=== PATIENT | female | born 1945 | race Caucasian/White ===

== ENCOUNTER 2017-12-10 14:55 | Inpatient (IN) | payer OTHER ==
[~2017-12-10] VITALS: Ht 165.1 cm; Wt 71.1 kg
[2017-12-10 15:26] LABS: HEMOGLOBIN 14.8 G/DL (11.9-15.5); MCH 30.5 PG (29.0-34.0); MCHC 33.6 G/DL (30.0-36.0); MCV 90.5 FL (83-99); PLATELET COUNT 251 K/uL (156-360); RBC DIS.WIDTH-CV 12.1 % (11.8-14.6); RBC DIS.WIDTH-SD 39.9 % (39-53); RED BLOOD COUNT 4.86 M/uL (3.80-5.20); WHITE BLOOD COUNT 10.5 K/uL (4.1-10.2)
[2017-12-10 15:36] LABS: CHLORIDE 105 mEq/L (99-109); POTASSIUM 3.6 mEq/L (3.7-5.4); SODIUM 143 mEq/L (136-147)
[2017-12-10 15:37] LABS: GLUCOSE 90 mg/dL (70-99)
[2017-12-10 15:41] LABS: CREATININE 0.8 mg/dL (0.6-1.3); GFR ESTIMATE (CALCULATED) > 59 mL/min/
[2017-12-10 15:42] LABS: UREA NITROGEN (BUN) 11 mg/dL (9-23)
[2017-12-10 17:32] LABS: ALBUMIN 4.7 g/dL (3.2-4.8)
[2017-12-10 17:35] LABS: TOTAL PROTEIN 7.6 g/dL (6.4-8.3)
[2017-12-10 17:37] LABS: TOTAL BILIRUBIN 0.4 mg/dL (0.0-1.0)
[2017-12-10 17:38] LABS: ALKALINE PHOSPHATASE 106 IU/L (3-129)
[2017-12-10 17:40] LABS: AST (GOT) 18 IU/L (2-34)
[2017-12-10 17:41] LABS: ALT (GPT) 17 IU/L (3-49); DIRECT BILIRUBIN 0.2 mg/dL (0.0-0.3)
[2017-12-10 17:42] LABS: LIPASE 21 U/L (1.0-51.0)
[2017-12-10 17:46] LABS: TROP-I INTERPRETATION NEGATIVE; TROPONIN-I < 0.01 ng/mL (0.0-0.30)
[2017-12-10] MEDS ORDERED: DORZOLAMIDE-TIM10 ML BOTH EYES (20:37)
[2017-12-10] MEDS ORDERED: ATORVASTATIN CA10 MG PO (20:38)
[2017-12-10] MEDS ORDERED: CYANOCOBALAM1000 MCG PO (20:39)
[2017-12-10] MEDS ORDERED: CALCIUM 600 +1 EAC9 PO (20:39)
[2017-12-10] MEDS ORDERED: VITAMIN D31000 UNI2 PO (20:40)
[2017-12-11 00:54] LABS: HEMATOCRIT 39.7 % (36.0-46.0); HEMOGLOBIN 13.5 G/DL (11.9-15.5); MCV 89.8 FL (83-99)
[2017-12-11 01:00] LABS: INTER. NORMALIZED RATIO 1.1
[2017-12-11 01:02] LABS: PTT 28.7 SEC (25-37)
[2017-12-11 01:18] VITALS: BP 144/67
[2017-12-11 04:15] VITALS: BP 134/62
[2017-12-11 06:19] LABS: HEMATOCRIT 39.6 % (36.0-46.0); HEMOGLOBIN 13.1 G/DL (11.9-15.5); MCV 90.4 FL (83-99)
[2017-12-11 06:40] LABS: CHLORIDE 107 MEQ/L (99-109); CREATININE 0.8 MG/DL (0.6-1.3); GFR ESTIMATE (CALCULATED) > 59 mL/min/; GLUCOSE 95 mg/dL (70-99); POTASSIUM 3.9 MEQ/L (3.7-5.4); SODIUM 142 MEQ/L (136-147); UREA NITROGEN (BUN) 6 mg/dL (9-23)
[2017-12-11 06:43] LABS: TROP-I INTERPRETATION NEGATIVE; TROPONIN-I < 0.01 ng/mL (0.0-0.30)
[2017-12-11 11:03] LABS: BASOPHIL (%) 0.6 % (0-1); EOSINOPHIL (%) 1.3 % (0-5); EOSINOPHIL COUNT 0.1 K/uL (0-0.3); IMMATURE GRANULOCYTE (%) 0.3 % (0.0-0.7); LYMPHOCYTE (%) 26.8 % (15-42); LYMPHOCYTE COUNT 1.9 K/uL (1.0-2.8); MCH 29.6 PG (29.0-34.0); MCHC 32.4 G/DL (30.0-36.0); MONOCYTE (%) 8.4 % (3-12); MONOCYTE COUNT 0.6 K/uL (0-0.8); NEUTROPHIL (%) 62.6 % (45-76); NEUTROPHIL COUNT 4.4 K/uL (1.8-6.4); PLATELET COUNT 215 K/uL (156-360); RBC DIS.WIDTH-CV 12.3 % (11.8-14.6); RBC DIS.WIDTH-SD 41.1 % (39-53); RED BLOOD COUNT 4.42 M/uL (3.80-5.20); WHITE BLOOD COUNT 7.1 K/uL (4.1-10.2)
[2017-12-11 12:22] VITALS: BP 133/63
[2017-12-11 13:02] LABS: HEMATOCRIT 40.1 % (36.0-46.0); HEMOGLOBIN 13.4 G/DL (11.9-15.5); MCV 91.3 FL (83-99)
[2017-12-11 16:24] VITALS: BP 127/62
[2017-12-11 18:14] LABS: HEMATOCRIT 37.5 % (36.0-46.0); HEMOGLOBIN 12.5 G/DL (11.9-15.5); MCV 89.5 FL (83-99)
[2017-12-11 19:40] VITALS: BP 138/60
[2017-12-11 23:35] VITALS: BP 118/55
[2017-12-12 05:04] VITALS: BP 121/77
[2017-12-12 06:15] LABS: BASOPHIL (%) 0.4 % (0-1); EOSINOPHIL (%) 2.8 % (0-5); EOSINOPHIL COUNT 0.2 K/uL (0-0.3); HEMATOCRIT 39.8 % (36.0-46.0); HEMOGLOBIN 13.1 G/DL (11.9-15.5); IMMATURE GRANULOCYTE (%) 0.4 % (0.0-0.7); LYMPHOCYTE COUNT 1.6 K/uL (1.0-2.8); MCH 30.1 PG (29.0-34.0); MCHC 32.9 G/DL (30.0-36.0); MCV 91.5 FL (83-99); MONOCYTE COUNT 0.5 K/uL (0-0.8); NEUTROPHIL (%) 64.4 % (45-76); NEUTROPHIL COUNT 4.4 K/uL (1.8-6.4); PLATELET COUNT 190 K/uL (156-360); RBC DIS.WIDTH-CV 12.2 % (11.8-14.6); RED BLOOD COUNT 4.35 M/uL (3.80-5.20); WHITE BLOOD COUNT 6.8 K/uL (4.1-10.2)
[2017-12-12 06:37] LABS: CHLORIDE 110 MEQ/L (99-109); CREATININE 0.7 MG/DL (0.6-1.3); GFR ESTIMATE (CALCULATED) > 59 mL/min/; GLUCOSE 73 mg/dL (70-99); POTASSIUM 3.4 MEQ/L (3.7-5.4); SODIUM 143 MEQ/L (136-147); UREA NITROGEN (BUN) 6 mg/dL (9-23)
[2017-12-12 06:53] LABS: C-REACTIVE PROTEIN 11.6 MG/L (0-10)
[2017-12-12 08:27] VITALS: BP 128/60
[2017-12-12 11:48] VITALS: BP 122/60
[2017-12-12 16:11] VITALS: BP 153/66
[2017-12-12 19:49] VITALS: BP 149/67
[2017-12-12 23:51] VITALS: BP 133/60
[2017-12-13 05:13] VITALS: BP 109/54
[2017-12-13 05:48] LABS: BASOPHIL (%) 0.4 % (0-1); EOSINOPHIL (%) 1.6 % (0-5); EOSINOPHIL COUNT 0.1 K/uL (0-0.3); HEMATOCRIT 37.4 % (36.0-46.0); HEMOGLOBIN 12.3 G/DL (11.9-15.5); IMMATURE GRANULOCYTE (%) 0.4 % (0.0-0.7); LYMPHOCYTE (%) 22.5 % (15-42); LYMPHOCYTE COUNT 1.8 K/uL (1.0-2.8); MCH 29.7 PG (29.0-34.0); MCHC 32.9 G/DL (30.0-36.0); MCV 90.3 FL (83-99); MONOCYTE (%) 7.7 % (3-12); MONOCYTE COUNT 0.6 K/uL (0-0.8); NEUTROPHIL (%) 67.4 % (45-76); NEUTROPHIL COUNT 5.5 K/uL (1.8-6.4); PLATELET COUNT 191 K/uL (156-360); RBC DIS.WIDTH-CV 12.2 % (11.8-14.6); RBC DIS.WIDTH-SD 40.4 % (39-53); RED BLOOD COUNT 4.14 M/uL (3.80-5.20); WHITE BLOOD COUNT 8.1 K/uL (4.1-10.2)
[2017-12-13 06:11] LABS: CHLORIDE 111 MEQ/L (99-109); CREATININE 0.7 MG/DL (0.6-1.3); GFR ESTIMATE (CALCULATED) > 59 mL/min/; GLUCOSE 80 mg/dL (70-99); POTASSIUM 3.2 MEQ/L (3.7-5.4); SODIUM 143 MEQ/L (136-147); UREA NITROGEN (BUN) 5 mg/dL (9-23)
[2017-12-13 08:13] VITALS: BP 121/60
[2017-12-13 11:16] VITALS: BP 136/65
[2017-12-13] MEDS ORDERED: CIPROFLOXACIN500 M1 PO (14:54)
[2017-12-13] MEDS ORDERED: FLAGYL500 MG PO (14:55)
[2017-12-13 16:09] VITALS: BP 142/64
== END 2017-12-13 17:53 | disposition home or self-care (01) | DRG 392 ==
LOC: EME 14:55 → EDOF 23:39 → 3EAST 23:39 → ENRESERV 23:40 → 3EAST 12-11 01:01
PROVIDERS: Hospitalist; Internal Medicine Gastroenterology; Student in an Organized Health Care Education/Training Program
DX: K52.9 Noninfective gastroenteritis and colitis, unspecified (principal); K63.5 Polyp of colon; K57.30 Diverticulosis of large intestine without perforation or abscess without bleeding; R55 Syncope and collapse; S00.83XA Contusion of other part of head, initial encounter; S01.21XA Laceration without foreign body of nose, initial encounter; W18.12XA Fall from or off toilet with subsequent striking against object, initial encounter; Y92.002 Bathroom of unspecified non-institutional (private) residence as the place of occurrence of the external cause; M81.0 Age-related osteoporosis without current pathological fracture; E78.5 Hyperlipidemia, unspecified; J44.9 Chronic obstructive pulmonary disease, unspecified; Z85.3 Personal history of malignant neoplasm of breast; Z88.0 Allergy status to penicillin; Z88.1 Allergy status to other antibiotic agents
CPT/HCPCS: 70450; 71046; 74177; 80048; 80076; 82272; 83605; 83690; 84484; 85014; 85018; 85025; 85027; 85610; 85730; 86140; 86850; 86900; 86901; 87493; 87506; 88305; 93005; 99281; 99285; J0744; J7030; S0028; S0030